=== PATIENT | female | born 1960 | race Caucasian/White ===

== ENCOUNTER → 2016-04-23 | Outpatient (CLI) | payer BC ==
[~2016-04-23] MED LIST: METROGEL TOP; PREMARIN CREAM; VGFVS/24
== END | disposition home or self-care (01) ==
LOC: C.PAPS 16:14
PROVIDERS: ATTEND Obstetrics & Gynecology
DX: Z01.419 Encounter for gynecological examination (general) (routine) without abnormal findings (principal)

== ENCOUNTER 2023-10-22 18:59 | Observation (INO) ==
[2023-10-22 19:37] LABS: Appearance Urine Clear (Clear); Bilirubin Urine Negative (Negative); Blood Urine Negative (Negative); Color Urine Yellow; Glucose Urine UA Negative (Negative); Ketones Urine 1+ (Negative); Leukocyte Esterase Urine Negative (Negative); Nitrite Urine Negative (Negative); Protein Urine Negative (Negative); Specific Gravity Urine 1.016 (1.000-1.030); Urobilinogen Urine Negative (Negative)
[2023-10-22 19:48] LABS: Basophils # (auto) 0.03 K/uL (0.00-0.20); Basophils % (auto) 0.3 %; Eosinophils # (auto) 0.04 K/uL (0.00-0.50); Eosinophils % (auto) 0.3 %; Hematocrit (blood only) 37.3 % (37.0-47.0); Hemoglobin 12.9 g/dl (12.0-16.0); Immature Granulocytes # (auto) 0.03 K/uL (0.01-0.20); Immature Granulocytes % (auto) 0.3 %; Lymphocytes # (auto) 1.82 K/uL (1.20-3.40); Lymphocytes % (auto) 15.9 %; Mean Corpuscular Hemoglobin 31.1 pg (25.0-34.0); Mean Corpuscular Hgb Conc 34.6 g/dL (32.0-36.0); Mean Corpuscular Volume 89.9 fL (80.0-100.0); Mean Platelet Volume 10.2 fL (9.4-12.4); Monocytes # (auto) 0.67 K/uL (0.11-0.59); Monocytes % (auto) 5.8 %; Neutrophils # (auto) 8.88 K/uL (1.40-6.50); Neutrophils % (auto) 77.4 %; Platelet Count 237 K/uL (130-400); RDW Coefficient of Variation 11.8 % (11.5-14.5); RDW Standard Deviation 38.4 fL (36.4-46.3); Red Blood Count 4.15 M/uL (4.20-5.40); White Blood Count 11.47 K/ul (4.8-10.8)
[2023-10-22 20:01] LABS: Albumin Globulin Ratio 1.5 (0.9-2); Albumin Level 4.8 gm/dl (3.4-5.0); BUN Creatinine Ratio 14.9 (10-20); Bilirubin,Total 1.2 mg/dl (0.2-1.0); Calcium 9.7 mg/dl (8.6-10.3); Creatinine Clr Calc Pharmacy 77.1 ml/min; Est GFR (African American) 99.2 ml/min; Est GFR (Non-African American) 85.6 ml/min; Globulin 3.1 gm/dl (2.5-4.0); Potassium 3.8 mmol/L (3.5-5.1); Total Protein 7.9 gm/dl (6.0-8.3)
[2023-10-22] MEDS: OPTIRAY 320 100ml IV ONE (20:10)
--- NOTE | 2023-10-22 20:36 | Emergency Department Note ---
History of Present Illness General Chief complaint: Abdominal Pain Stated complaint: ABD PAIN, BLOATING Time Seen by Provider: 10/22/23 19:47 History of Present Illness Maximum Pain Intensity: 4 Patient is a 63-year-old female with past medical history significant for osteoporosis who presents to the emergency department for evaluation of abdominal pain. Patient reports that her symptoms started on Thursday evening, 2 days ago. She reports that her symptoms were vague at onset, she just describes it as having an upset stomach or feeling like she had indigestion. She thought that she may have eaten something that did not agree with her. She was restless overnight, but was feeling well enough to go to work yesterday. She got through the day but when she got home last night, she did not have an appetite, and went to bed. At that point she noticed the pain was primarily in right lower quadrant. It hurt her to move in certain directions and to roll in the bed. She tried Pepto-Bismol chewables and ibuprofen. She thought her symptoms could be related to gas. Today, symptoms escalated. She had a light lunch of soup and grapes, and afterwards felt very bloated. She did try some MiraLAX, and had a bowel movement today, but still feels constipated. Patient currently rates her pain a 4/10. She also notes increased urination, but no dysuria or hematuria. She called her doctor's office this evening, they directed her to urgent care who sent her to the ED for evaluation. No fever or chills. No nausea, vomiting or diarrhea. No history of abdominal surgeries. Colonoscopy current, 4 years ago, has been clean in the past. Home Medications Medication Instructions Recorded Confirmed Type cholecalciferol (vitamin D3) 25 25 mcg PO DAILY 10/22/23 10/22/23 History mcg (1,000 unit) capsule (Vitamin D3) metronidazole 0.75 % topical cream 1 applic topical DAILY 10/22/23 10/22/23 History multivitamin 1 tab PO DAILY 10/22/23 10/22/23 History polyethylene glycol 3350 17 17 g PO DAILY PRN Constipation 10/22/23 10/22/23 History gram/dose oral powder (Miralax) terbinafine HCl 250 mg tablet 250 mg PO DAILY 10/22/23 10/22/23 History teriparatide 20 mcg/dose (600 0 mcg subcut DAILY 10/22/23 10/22/23 History mcg/2.4 mL) subcutaneous pen injector (Forteo) Allergies Allergy/AdvReac Type Severity Reaction Status Date / Time scallops AdvReac Intermediate Gastrointestinal Verified 10/22/23 22:37 Upset Past Med/Surg History Problem List Acute appendicitis (Acute) Encounter for cosmetic procedure Medical History Osteoporosis Tinnitus, bilateral Sensorineural hearing loss of both ears Atypical lobular hyperplasia of breast (~11/2008) Surgical History History of (~1995) H/O breast biopsy (~2007) History of (~1991) H/O wisdom tooth extraction (~1981) Hx of tonsillectomy (~1964) Family History Mother Breast cancer Father Breast cancer Lung cancer Grandmother (Maternal) Colorectal cancer Denies family history of Ovarian cancer Social History Smoking Status: Never smoker Tobacco Type: Cigarettes Hx Alcohol Use: Yes Hx Substance Use: No Preferred Language: Latvian Communication Ability: Effective Feels Safe at Home: Yes Sunscreen Use: Yes Review of Systems A total of 10 systems reviewed and were otherwise negative Physical Exam Vital Signs Vital Signs - 24 hr 10/22/23 19:11 10/22/23 19:15 10/22/23 19:18 Temperature 36.6 C Temperature Source Temporal Artery Scan Pulse Rate 70 Pulse Rhythm Regular Respiratory Rate 16 Respiratory Effort / Characteristics Non-Labored Non-Labored Respiratory Depth Normal Normal Blood Pressure 150/90 H Blood Pressure Mean 110 Pulse Oximetry 99 Oxygen Delivery Method Room Air Room Air Sepsis Recent Fever Within 48 Hours No Sepsis New/Unexplained Change in Mental Status No Sepsis Action Taken by Nursing No Action Required CONSTITUTIONAL: Patient is an ill albeit nontoxic-appearing 63-year-old female who is laying on the gurney in no acute distress. Temperature rechecked at time of exam was 37.4 C orally. EYES: Pupils equal, round, reactive to light and accommodation. EOMs intact without nystagmus. Sclera are anicteric. CARDIOVASCULAR: Regular rate and rhythm. Peripheral pulses easy to palpable. RESPIRATORY: Breath sounds equal and clear to auscultation. GI: Bowel sounds are diminished. Abdomen is soft, tender to percussion over the right lower quadrant, and tenderness to palpation on the right lower quadrant with guarding. MUSCULOSKELETAL: Full range of motion of extremities x 4 with good strength. No cyanosis, edema, joint tenderness or swelling. No deformity. Course Course Patient was seen and assessed as above. External medical records were reviewed. Laboratory studies implemented from triage per critical pathways. CT scan of the abdomen and pelvis with IV contrast was ordered. CBC with differential, CMP, lipase and urinalysis were ordered. I was able to fully assess the patient when she was placed in room C9. After my assessment of the patient, she was ordered IV fluids, IV fentanyl and Zofran. Diagnostics, as interpreted by me: Laboratory studies: White count 11,400 with left shift. No anemia. Electrolytes, renal functions are normal. Total bilirubin 1.2, remainder the transaminases are not elevated. Lipase mildly elevated at 142. Urine microscopy notes ketones only, no other indicators for infection. Imaging studies: CT scan of the abdomen and pelvis with IV contrast notes retroperitoneal appendicitis, without perforation or abscess. Stat Rad radiologist, Dr. Sullivan, called directly with the CT report. Patient was reassessed. She reported some mild improvement in her pain with the fentanyl. CT scan results were discussed with her. Consultation was placed with general surgery, patient reviewed with Jourdan Head PA-C with general surgery. Patient will be admitted to the surgical service with plan for surgical intervention tomorrow. Please refer to admission H&P and orders for further information. Differential diagnosis: UTI, pyelonephritis, kidney stone, appendicitis, diverticulitis, bowel obstruction, perforation, abscess, mass or malignancy, among others. Administered Medications Sodium Chloride (Nss) 1,000 mls @ 125 mls/hr IV .Q8H [place] Stop: 11/21/23 22:14 Last Admin: 10/22/23 22:50 Dose: 125 mls/hr Documented By: SDK Discontinued Medications Fentanyl Citrate (Fentanyl Citrate Pf 100 Mcg/2 Ml Vial) 50 mcg IV NOW STA Stop: 10/22/23 20:37 Last Admin: 10/22/23 20:59 Dose: 50 mcg Documented By: GAGAN Sodium Chloride (Nss) 1,000 mls @ 999 mls/hr IV .Q1H1M [place] Stop: 10/22/23 21:36 Last Infusion: 10/22/23 22:44 Dose: Infused Documented By: Admin: 10/22/23 21:00 Dose: 999 mls/hr Documented By: GAGAN Piperacillin Sod/Tazobactam Sod (Zosyn) 4.5 gm in 100 mls @ 200 mls/hr IV NOW STA Stop: 10/22/23 22:48 Last Infusion: 10/22/23 23:40 Dose: Infused Documented By: Admin: 10/22/23 22:48 Dose: 200 mls/hr Documented By: GAGAN Ioversol (Optiray 320 100ml) 91 ml IV ONCE ONE Stop: 10/22/23 20:11 Last Admin: 10/22/23 20:10 Dose: 91 ml Documented By: PIEDAD Ondansetron HCl (Ondansetron Inj 2 Mg/Ml 2 Ml Vial) 4 mg IV NOW STA Stop: 10/22/23 20:37 Last Admin: 10/22/23 20:59 Dose: 4 mg Documented By: GAGAN Medical Decision Making Differential Diagnosis See ED Course. Medical Records Attestation: I reviewed the patient's medical records. Home Medications Current Medication List: was personally reviewed by me Laboratory Data Attestation: I reviewed the patient's lab results. 10/22/23 19:29 10/22/23 19:29 Lab Results 10/22/23 10/22/23 Range/Units 19:20 19:29 WBC 11.47 H (4.8-10.8) K/ul RBC 4.15 L (4.20-5.40) M/uL Hgb 12.9 (12.0-16.0) g/dl Hct 37.3 (37.0-47.0) % MCV 89.9 (80.0-100.0) fL MCH 31.1 (25.0-34.0) pg MCHC 34.6 (32.0-36.0) g/dL RDW Std Deviation 38.4 (36.4-46.3) fL RDW Coeff of Elaine 11.8 (11.5-14.5) % Plt Count 237 (130-400) K/uL MPV 10.2 (9.4-12.4) fL Immature Gran % (Auto) 0.3 % Neut % (Auto) 77.4 % Lymph % (Auto) 15.9 % [place] % (Auto) 5.8 % Eos % (Auto) 0.3 % Baso % (Auto) 0.3 % Neut # (Auto) 8.88 H (1.40-6.50) K/uL Lymph # (Auto) 1.82 (1.20-3.40) K/uL [place] # (Auto) 0.67 H (0.11-0.59) K/uL Eos # (Auto) 0.04 (0.00-0.50) K/uL Baso # (Auto) 0.03 (0.00-0.20) K/uL Immature Gran # (Auto) 0.03 (0.01-0.20) K/uL Sodium 137 (136-145) mmol/L Potassium 3.8 (3.5-5.1) mmol/L Chloride 100 (98-107) mmol/L Carbon Dioxide 29 (21-32) mmol/L Anion Gap 8 (3-11) BUN 11 (6-23) mg/dl Creatinine 0.74 (0.6-1.2) mg/dl Est Cr Clr Drug Dosing 77.1 ml/min Est GFR ( Amer) 99.2 ml/min Est GFR (Non-Af Amer) 85.6 ml/min BUN/Creatinine Ratio 14.9 (10-20) Glucose 96 (70-99(Fasting)) mg/dl Calcium 9.7 (8.6-10.3) mg/dl Total Bilirubin 1.2 H (0.2-1.0) mg/dl AST 18 (13-39) U/L ALT 16 (7-52) U/L Alkaline Phosphatase 63 (34-104) U/L Total Protein 7.9 (6.0-8.3) gm/dl Albumin 4.8 (3.4-5.0) gm/dl Globulin 3.1 (2.5-4.0) gm/dl Albumin/Globulin Ratio 1.5 (0.9-2) Lipase 142 H (11-82) U/L Urine Color Yellow Urine Appearance Clear (Clear) Urine pH 6.0 (4.5-7.5) Ur Specific [place] 1.016 (1.000-1.030) Urine Protein Negative (Negative) Urine Glucose (UA) Negative (Negative) Urine Ketones 1+ H (Negative) Urine Blood Negative (Negative) Urine Nitrite Negative (Negative) Urine Bilirubin Negative (Negative) Urine Urobilinogen Negative (Negative) Ur Leukocyte Esterase Negative (Negative) Imaging Data Attestation: I personally reviewed and interpreted this imaging study as follows: Radiologist's Impression: Abdomen/Pelvis CT 10/22/23 19:27 CR Exam(s): CT ABDOMEN + PELVIS With Contrast IV Amt: 91 ml optiray 320 EXAM: CT Abdomen and Pelvis With Intravenous Contrast CLINICAL HISTORY: rlq pain. TECHNIQUE: Axial computed tomography images of the abdomen and pelvis with intravenous contrast. CTDI is 19.27 mGy and DLP is 841.99 mGy-cm. Automated exposure control was utilized for the study. A dose lowering technique was utilized adhering to the principles of ALARA. CONTRAST: Patient received 91 ml optiray 320 of IV contrast COMPARISON: No relevant prior studies available. FINDINGS: Limitations: There is respiratory artifact, which degrades image quality on multiple image slices. Lung bases: Unremarkable. No mass. No consolidation. ABDOMEN: Liver: Unremarkable. No mass. Gallbladder and bile ducts: Unremarkable. No calcified stones. No ductal dilation. Pancreas: Unremarkable. No mass. No ductal dilation. Spleen: Unremarkable. No splenomegaly. Adrenals: Unremarkable. No mass. Kidneys and ureters: Kidneys demonstrate normal enhancement. No hydronephrosis or obstructive nephrolithiasis. A 17 mm cortical cyst is noted involving the inferomedial right kidney. No follow-up required. Stomach and bowel: There is mild mucosal prominence of the inferior cecum. No other significant bowel mucosal abnormality noted. No bowel obstruction. PELVIS: Appendix: The retrocecal appendix is abnormally dilated, measuring up to 11 mm in diameter with hyperenhancement and periappendiceal fat stranding. Bladder: Unremarkable. No mass. Reproductive: Presumed incidental left adnexal/ovarian cyst measuring 6.1 x 4.7 x 5.6 cm. ABDOMEN and PELVIS: Intraperitoneal space: Unremarkable. No free air. No significant fluid collection. Bones/joints: No acute fracture. No dislocation. Soft tissues: Unremarkable. Vasculature: Atherosclerotic calcification of the aorta which is mildly tortuous. No dissection or aneurysm. Lymph nodes: Unremarkable. No enlarged lymph nodes. IMPRESSION: The retrocecal appendix is abnormally dilated, measuring up to 11 mm in diameter with hyperenhancement and periappendiceal fat stranding. Findings are consistent with acute appendicitis. No abscess or perforation. Communications: Call Doctor Appendicitis Electronically signed by: Samir Kline MD 10/22/23 21:54 PM MDM Narrative See ED Course. Impression & Plan Acute appendicitis Discharge Plan Visit Data Chief Complaint: Abdominal Pain Stated Complaint: ABD PAIN, BLOATING ED Provider: Jan Woods ED Midlevel Provider: Chay Cherry Discharge Problem: Acute appendicitis Patient Disposition: Admitted As Inpatient Discharge Instructions Interventions: ED Discharge Assessment Last Done: 10/23/23 00:00 Discharge Problem: Acute appendicitis Qualifiers: Acute appendicitis type: with localized peritonitis Appendicitis gangrene presence: without gangrene Appendicitis perforation presence: without perforation Appendicitis abscess presence: without abscess Qualified Code(s): K 35.30 - Acute appendicitis with localized peritonitis, without perforation or gangrene
[2023-10-22] MEDS: ONDANSETRON INJ 2 MG/ML 2 ML VIAL IV STA (20:59)
[2023-10-22] MEDS: fentaNYL citrate PF 100 MCG/2 ML VIAL IV STA (20:59)
[2023-10-22] MEDS: SODIUM CHLORIDE 0.9% 1,000 ML IV SCH ×2 (21:00→22:50)
--- NOTE | 2023-10-22 21:55 | CT Scan Report ---
Exam(s): CT ABDOMEN + PELVIS With Contrast IV Amt: 91 ml optiray 320 EXAM: CT Abdomen and Pelvis With Intravenous Contrast CLINICAL HISTORY: rlq pain. TECHNIQUE: Axial computed tomography images of the abdomen and pelvis with intravenous contrast. CTDI is 19.27 mGy and DLP is 841.99 mGy-cm. Automated exposure control was utilized for the study. A dose lowering technique was utilized adhering to the principles of ALARA. CONTRAST: Patient received 91 ml optiray 320 of IV contrast COMPARISON: No relevant prior studies available. FINDINGS: Limitations: There is respiratory artifact, which degrades image quality on multiple image slices. Lung bases: Unremarkable. No mass. No consolidation. ABDOMEN: Liver: Unremarkable. No mass. Gallbladder and bile ducts: Unremarkable. No calcified stones. No ductal dilation. Pancreas: Unremarkable. No mass. No ductal dilation. Spleen: Unremarkable. No splenomegaly. Adrenals: Unremarkable. No mass. Kidneys and ureters: Kidneys demonstrate normal enhancement. No hydronephrosis or obstructive nephrolithiasis. A 17 mm cortical cyst is noted involving the inferomedial right kidney. No follow-up required. Stomach and bowel: There is mild mucosal prominence of the inferior cecum. No other significant bowel mucosal abnormality noted. No bowel obstruction. PELVIS: Appendix: The retrocecal appendix is abnormally dilated, measuring up to 11 mm in diameter with hyperenhancement and periappendiceal fat stranding. Bladder: Unremarkable. No mass. Reproductive: Presumed incidental left adnexal/ovarian cyst measuring 6.1 x 4.7 x 5.6 cm. ABDOMEN and PELVIS: Intraperitoneal space: Unremarkable. No free air. No significant fluid collection. Bones/joints: No acute fracture. No dislocation. Soft tissues: Unremarkable. Vasculature: Atherosclerotic calcification of the aorta which is mildly tortuous. No dissection or aneurysm. Lymph nodes: Unremarkable. No enlarged lymph nodes. IMPRESSION: The retrocecal appendix is abnormally dilated, measuring up to 11 mm in diameter with hyperenhancement and periappendiceal fat stranding. Findings are consistent with acute appendicitis. No abscess or perforation. Communications: Call Doctor Appendicitis Electronically signed by: Samir Kline MD 10/22/23 21:54 PM
[2023-10-22] MEDS ORDERED: ONDANSETRON INJ 2 MG/ML 2 ML VIAL IV PRN (22:12)
[2023-10-22] MEDS ORDERED: MoRPHine SULFATE 4 MG/ML 1 ML CARP\\VIAL IV PRN (22:12)
--- NOTE | 2023-10-22 22:18 | History & Physical Report ---
Date of Service October 22, 2023 Assessment & Plan (1) Acute appendicitis: Plan: Due to the patient's clinical presentation, labs, and findings on imaging she will be admitted to the surgical service proceeding as follows: Analgesics to be provided antiemetics to be provided We will initiate antibiotics in the form of Zosyn Will hydrate her with IV fluids Serial labs will be followed Will implement n.p.o. status Will tenably plan on having the patient undergo an appendectomy with Dr. Busby of [facility] physician and general surgery on 10/23/2023 We will check a preoperative chest x-ray Will check a preoperative EKG At the present time the patient is nontoxic-appearing. She is normotensive without tachycardia or fever. Additional recommendations will be forthcoming based on her clinical course as unfolds and her postop recovery thereafter SCDs will be used for DVT prevention, no chemical means due to planned surgery She will be a level 1 full code Addendum: Chest x-ray did not show any evidence of pneumonia. History of Present Illness Chief Complaint: Abdominal pain Primary Care Provider: Keisha Padilla MD This is a 63-year-old female who presented to the emergency department secondary to abdominal pain that began 2 days ago. Patient notes that the pain was in her upper abdomen but has since largely shifted to the right lower quadrant. She notes that the pain is otherwise nonradiating. She notes that the pain is better when she flexes her knees and is worse with certain movements. She denies any fevers, shakes, or chills. She denies any nausea or vomiting. Patient reports that she has had 2 C-sections but has had no additional abdominal surgeries. Her last oral intake of solid food was at approximately 12:00 PM on 10/22/2023 but she mitts that she has been sipping some tea but has not had any since 5:00 PM on 10/22/2023. In the emergency department she had labs and imaging which I independent reviewed. A CT scan of the abdomen pelvis showed the patient had a retrocecal appendix which was dilated up to 11 mm with some periappendiceal fat stranding. There is no abscess or perforation of the appendix. These findings were felt to be consistent with acute appendicitis. She did have a urinalysis that was not indicative of infection. CBC revealed white blood cell count was 11.4. Her hemoglobin and hematocrit as well as the platelet count were within the normal range. Chemistry profile showed sodium and potassium as well as the BUN and cre atinine were normal. She did have a slight elevation of her lipase at 142. At the time of my interview she was resting comfortably bed and she was in no distress Allergies Allergy/AdvReac Type Severity Reaction Status Date / Time scallops AdvReac Intermediate Gastrointestinal Verified 10/22/23 22:37 Upset Home Medications Medication Instructions Recorded Confirmed Type cholecalciferol (vitamin D3) 25 25 mcg PO DAILY 10/22/23 10/22/23 History mcg (1,000 unit) capsule (Vitamin D3) metronidazole 0.75 % topical cream 1 applic topical DAILY 10/22/23 10/22/23 History multivitamin 1 tab PO DAILY 10/22/23 10/22/23 History polyethylene glycol 3350 17 17 g PO DAILY PRN Constipation 10/22/23 10/22/23 History gram/dose oral powder (Miralax) terbinafine HCl 250 mg tablet 250 mg PO DAILY 10/22/23 10/22/23 History teriparatide 20 mcg/dose (600 0 mcg subcut DAILY 10/22/23 10/22/23 History mcg/2.4 mL) subcutaneous pen injector (Forteo) Past Med/Surg History Problem List Acute appendicitis (Acute) Encounter for cosmetic procedure Medical History Osteoporosis Tinnitus, bilateral Sensorineural hearing loss of both ears Atypical lobular hyperplasia of breast (~11/2008) Surgical History History of (~1995) H/O breast biopsy (~2007) History of (~1991) H/O wisdom tooth extraction (~1981) Hx of tonsillectomy (~1964) Family History Mother Breast cancer Father Breast cancer Lung cancer Grandmother (Maternal) Colorectal cancer Denies family history of Ovarian cancer Social History Smoking Status: Never smoker Tobacco Type: Cigarettes Hx Alcohol Use: Yes Hx Substance Use: No Preferred Language: Swazi Communication Ability: Effective Feels Safe at Home: Yes Sunscreen Use: Yes Review of Systems Review of Systems: All systems reviewed & are unremarkable except as noted in HPI & below Physical Exam Constitutional: WD/WN, vitals as above Eyes: no conjunctival abnormality ENMT: Ears: no hearing impairment and no external ear abnormality Mouth: no oropharynx abnormality Neck: trachea midline Respiratory: normal respiratory effort; no respiratory distress and no labored breathing Cardiovascular: Rate/Rhythm: regular rate and regular rhythm Vessels: dorsalis pedis pulses present Gastrointestinal (Abdomen): Abdomen is soft, nondistended, nonrigid. Patient did have some voluntary guarding significant tenderness in the right lower quadrant or McBurney's point. Musculoskeletal: No calf tenderness Skin: no rashes Neurologic: moves all extremities Psychiatric: A+Ox3, euthymic affect Results & Data Results & Data Vital Signs (Past 12 Hours) Vital Signs Temp Pulse Resp BP Pulse Ox O2 Del Method 10/22/23 19:15 Room Air 10/22/23 19:11 36.6 C 70 16 150/90 H 99 Room Air Supervising Physician Co-Signing Physician Notes pnt d/w MARCO A Iyer, labs and imaging reviewed, agree with above. abd pain, Ct personally reviewed, and interpreted, shows appy. Admit, plan for appendectomy in am PG Care Time/CCT Total # of Minutes Spent Total Time Spent with Patient: Total time spent is greater than 50% in coordination of care (as documented) at patient's floor/unit and/or counseling patient: Coding Level of Care Code 16343 INT INP/OBS CARE 3/75MIN Diagnoses Acute appendicitis K35.30 Acute appendicitis type: with localized peritonitis Appendicitis abscess presence: without abscess Appendicitis gangrene presence: without gangrene Appendicitis perforation presence: without perforation (1) Acute appendicitis Acute appendicitis type: with localized peritonitis Appendicitis abscess presence: without abscess Appendicitis gangrene presence: without gangrene Appendicitis perforation presence: without perforation Qualified Code(s): K35.30 - Acute appendicitis with localized peritonitis, without perforation or gangrene
[2023-10-22] MEDS: PIPERACILLIN/TAZOBACTAM 4.5 GM/100 ML BAG IV STA (22:48)
--- NOTE | 2023-10-23 03:36 | Communication Note ---
Date of Service: October 23, 2023 Patient revisited at bedside at approximately 3:20 AM. She is normotensive without tachycardia or fever. She does not report any worsening pain. There is no change in her clinical status. Will continue with plan as previously outlined.
[2023-10-23] MEDS: PIPERACILLIN/TAZOBACTAM 4.5 GM/100 ML BAG IV SCH (04:49)
[2023-10-23] MEDS: ACETAMINOPHEN 1,000 MG/100 ML VIAL IV PRN (05:03)
--- NOTE | 2023-10-23 07:23 | XRay Report ---
XR chest 1V portable HISTORY: pre-op COMPARISON: Chest 01/05/2011. FINDINGS: The lungs are clear. Cardiac silhouette is normal in size. No pleural effusions. No pneumot horax. IMPRESSION: No acute process. ACT 112: Negative or not required by law. Electronically signed by: Eduardo Patterson M.D. 10/23/2023 7:21 AM
[2023-10-23 08:10] LABS: Basophils # (auto) 0.04 K/uL (0.00-0.20); Basophils % (auto) 0.6 %; Eosinophils # (auto) 0.06 K/uL (0.00-0.50); Eosinophils % (auto) 0.9 %; Hematocrit (blood only) 33.5 % (37.0-47.0); Hemoglobin 11.6 g/dl (12.0-16.0); Immature Granulocytes # (auto) 0.02 K/uL (0.01-0.20); Immature Granulocytes % (auto) 0.3 %; Lymphocytes # (auto) 1.34 K/uL (1.20-3.40); Mean Corpuscular Hemoglobin 30.9 pg (25.0-34.0); Mean Corpuscular Hgb Conc 34.6 g/dL (32.0-36.0); Mean Corpuscular Volume 89.3 fL (80.0-100.0); Mean Platelet Volume 10.3 fL (9.4-12.4); Monocytes # (auto) 0.51 K/uL (0.11-0.59); Monocytes % (auto) 7.2 %; Neutrophils # (auto) 5.08 K/uL (1.40-6.50); Platelet Count 207 K/uL (130-400); RDW Coefficient of Variation 11.6 % (11.5-14.5); RDW Standard Deviation 37.1 fL (36.4-46.3); Red Blood Count 3.75 M/uL (4.20-5.40); White Blood Count 7.05 K/ul (4.8-10.8)
[2023-10-23 08:38] LABS: Partial Thromboplastin Time 28 Seconds (21-31); Prothrombin Time 10.9 Seconds (9.0-12.0)
[2023-10-23] MEDS: LACTATED RINGER'S 1,000 ML IV SCH (08:49)
[2023-10-23 09:10] LABS: BUN Creatinine Ratio 11.8 (10-20); Calcium 8.6 mg/dl (8.6-10.3); Creatinine Clr Calc Pharmacy 83.9 ml/min; Est GFR (African American) 107.1 ml/min; Est GFR (Non-African American) 92.4 ml/min; Potassium 3.9 mmol/L (3.5-5.1)
--- NOTE | 2023-10-23 09:19 | Anesthesiology Consultation ---
Date of Service October 23, 2023 Assessment & Plan Chart Review Chart Review: Acceptable Risk for Surgery and Patient NOT seen in Pre Admission Testing Consults Requested none History Surgery Operation Date: 10/23/23 07:00 Proposed Procedures p Laparoscopic Appendectomy - Serjio Busby DO, FACS Height/Weight Height: 5 ft 5 in Weight: 73.5 kg Allergies Allergy/AdvReac Type Severity Reaction Status Date / Time scallops AdvReac Intermediate Gastrointestinal Verified 10/22/23 22:37 Upset Medications Home Medications Medication Instructions Recorded Confirmed Last Taken cholecalciferol (vitamin D3) 25 25 mcg PO DAILY 10/22/23 10/22/23 10/22/23 mcg (1,000 unit) capsule (Vitamin D3) metronidazole 0.75 % topical cream 1 applic topical DAILY 10/22/23 10/22/23 10/22/23 multivitamin 1 tab PO DAILY 10/22/23 10/22/23 10/22/23 polyethylene glycol 3350 17 17 g PO DAILY PRN Constipation 10/22/23 10/22/23 10/22/23 gram/dose oral powder (Miralax) terbinafine HCl 250 mg tablet 250 mg PO DAILY 10/22/23 10/22/23 10/22/23 teriparatide 20 mcg/dose (600 0 mcg subcut DAILY 10/22/23 10/22/23 10/22/23 mcg/2.4 mL) subcutaneous pen injector (Forteo) Active Medications Generic Name Dose Route Start Last Admin Trade Name Freq PRN Reason Stop Dose Admin Sodium Chloride 1,000 mls @ 125 mls/hr 10/22/23 22:15 10/23/23 08:02 Nss IV 11/21/23 22:14 125 mls/hr .Q8H [place] Administration Acetaminophen 1,000 mg in 100 mls @ 400 mls/hr 10/22/23 22:12 10/23/23 05:19 Ofirmev IV 10/25/23 22:11 Infused Q8H PRN Infusion Moderate Pain (Scale 4, 5, 6) Piperacillin Sod/Tazobactam Sod 4.5 gm in 100 mls @ 25 mls/hr 10/23/23 04:00 10/23/23 08:55 Zosyn IV 11/02/23 03:59 Infused Q8H [place] Infusion Lactated Ringer's 1,000 mls @ 15 mls/hr 10/23/23 09:00 10/23/23 08:49 Lr IV 11/22/23 08:59 15 mls/hr .Q24H [place] Administration NPO Date Last Intake of Fluids: 10/22/23 Time Last Intake of Fluids: 17:00 Date Last Intake of Solids: 10/22/23 Time Last Intake of Solids: 12:00 Past Medical History Medical History Osteoporosis Tinnitus, bilateral Sensorineural hearing loss of both ears Atypical lobular hyperplasia of breast (~11/2008) Past Family History Family History Mother Breast cancer Father Breast cancer Lung cancer Grandmother (Maternal) Colorectal cancer Denies family history of Ovarian cancer Past Surgical History Surgical History History of (~1995) H/O breast biopsy (~2007) History of (~1991) H/O wisdom tooth extraction (~1981) Hx of tonsillectomy (~1964) Social History Smoking Status: Former smoker Do You Dip or Chew Tobacco: No Hx Alcohol Use: Yes alcohol intake frequency: 0-2 drinks per day Alcohol Intake Frequency Comment: One drink daily Hx Substance Use: No Physical Exam Vital Signs Last Vital Signs Temp 36.8 C 10/23/23 08:41 Pulse 49 L 10/23/23 08:41 Resp 16 10/23/23 08:41 BP 133/88 10/23/23 08:41 Pulse Ox 98 10/23/23 08:41 O2 Del Method Room Air 10/23/23 08:41 Testing Laboratory Results 10/23/23 07:35 10/23/23 07:35 PT 10.9 Seconds (9.0-12.0) 10/23/23 07:35 INR 1.0 (0.9-1.1) 10/23/23 07:35 APTT 28 Seconds (21-31) 10/23/23 07:35 Urine Color Yellow 10/22/23 19:20 Urine Appearance Clear (Clear) 10/22/23 19:20 Urine pH 6.0 (4.5-7.5) 10/22/23 19:20 Ur Specific Biv[place] 1.016 (1.000-1.030) 10/22/23 19:20 Urine Protein Negative (Negative) 10/22/23 19:20 Urine Glucose (UA) Negative (Negative) 10/22/23 19:20 Urine Ketones 1+ (Negative) H 10/22/23 19:20 Urine Nitrite Negative (Negative) 10/22/23 19:20 Ur Leukocyte Esterase Negative (Negative) 10/22/23 19:20 Electrocardiogram Date: 10/22/23 Findings: + NSR @ (65)
--- NOTE | 2023-10-23 09:57 | Surgery Progress Note ---
Date of Service October 23, 2023 Assessment & Plan (1) Acute appendicitis with localized peritonitis: Plan: Acute appendicitis with localized peritonitis Plan for laparoscopic appendectomy Risk the procedure were discussed to include but not limited bleeding, in fection, leak, abscess, damage surrounding structures, conversion open, normal appendix, need for future more extensive surgeries, abscess, and the risk of anesthesia Likely discharge this afternoon Activity restrictions, wound care instructions, and return precautions given Follow-up in general surgery clinic in 2-week Admission and Anticipated Discharge Date Admission Date: October 22, 2023 Subjective Admitted with appendicitis, no issues overnight Physical Exam Constitutional: WD/WN, vitals as above Respiratory: normal respiratory effort, lungs clear to auscultation Cardiovascular: RRR, no murmur, no edema Gastrointestinal (Abdomen): Percussion/Palpation: + abdomen tender (Tender to palpation in right lower quadrant with localized guarding), + guarding (Localized guarding right lower quad) and abdomen soft; abdomen not rigid Results & Data Vital Signs (Past 12 Hours) Vital Signs Temp Pulse Pulse Pulse Resp BP Pulse Ox 10/23/23 08:41 36.8 C 49 L 16 133/88 98 10/23/23 08:13 36.9 C 51 L 16 122/73 96 10/22/23 23:45 36.9 C 64 16 123/74 96 10/22/23 22:58 68 18 142/87 H 95 10/22/23 22:48 65 O2 Del Method 10/23/23 08:41 Room Air 10/23/23 08:13 Room Air 10/22/23 23:45 Room Air 10/22/23 22:58 10/22/23 22:48 Laboratory Results Laboratory Results - last 24 hr 10/22/23 10/22/23 10/23/23 19:20 19:29 07:35 WBC 11.47 H 7.05 RBC 4.15 L 3.75 L Hgb 12.9 11.6 L Hct 37.3 33.5 L MCV 89.9 89.3 MCH 31.1 30.9 MCHC 34.6 34.6 RDW Std Deviation 38.4 37.1 RDW Coeff of Elaine 11.8 11.6 Plt Count 237 207 MPV 10.2 10.3 Immature Gran % (Auto) 0.3 0.3 Neut % (Auto) 77.4 72.0 Lymph % (Auto) 15.9 19.0 [place] % (Auto) 5.8 7.2 Eos % (Auto) 0.3 0.9 Baso % (Auto) 0.3 0.6 Neut # (Auto) 8.88 H 5.08 Lymph # (Auto) 1.82 1.34 [place] # (Auto) 0.67 H 0.51 Eos # (Auto) 0.04 0.06 Baso # (Auto) 0.03 0.04 Immature Gran # (Auto) 0.03 0.02 PT 10.9 INR 1.0 APTT 28 PTT Ratio 1.0 Sodium 137 138 Potassium 3.8 3.9 Chloride 100 105 Carbon Dioxide 29 28 Anion Gap 8 5 BUN 11 8 Creatinine 0.74 0.68 Est Cr Clr Drug Dosing 77.1 83.9 Est GFR ( Amer) 99.2 107.1 Est GFR (Non-Af Amer) 85.6 92.4 BUN/Creatinine Ratio 14.9 11.8 Glucose 96 95 Calcium 9.7 8.6 Total Bilirubin 1.2 H AST 18 ALT 16 Alkaline Phosphatase 63 Total Protein 7.9 Albumin 4.8 Globulin 3.1 Albumin/Globulin Ratio 1.5 Lipase 142 H Urine Color Yellow Urine Appearance Clear Urine pH 6.0 Ur Specific [place] 1.016 Urine Protein Negative Urine Glucose (UA) Negative Urine Ketones 1+ H Urine Blood Negative Urine Nitrite Negative Urine Bilirubin Negative Urine Urobilinogen Negative Ur Leukocyte Esterase Negative Diagnostic Findings CT personally reviewed and interpreted by myself and agree with the assessment of acute appendicitis without evidence of perforation Abdomen/Pelvis CT 10/22/23 19:27 CR Exam(s): CT ABDOMEN + PELVIS With Contrast IV Amt: 91 ml optiray 320 EXAM: CT Abdomen and Pelvis With Intravenous Contrast CLINICAL HISTORY: rlq pain. TECHNIQUE: Axial computed tomography images of the abdomen and pelvis with intravenous contrast. CTDI is 19.27 mGy and DLP is 841.99 mGy-cm. Automated exposure control was utilized for the study. A dose lowering technique was utilized adhering to the principles of ALARA. CONTRAST: Patient received 91 ml optiray 320 of IV contrast COMPARISON: No relevant prior studies available. FINDINGS: Limitations: There is respiratory artifact, which degrades image quality on multiple image slices. Lung bases: Unremarkable. No mass. No consolidation. ABDOMEN: Liver: Unremarkable. No mass. Gallbladder and bile ducts: Unremarkable. No calcified stones. No ductal dilation. Pancreas: Unremarkable. No mass. No ductal dilation. Spleen: Unremarkable. No splenomegaly. Adrenals: Unremarkable. No mass. Kidneys and ureters: Kidneys demonstrate normal enhancement. No hydronephrosis or obstructive nephrolithiasis. A 17 mm cortical cyst is noted involving the inferomedial right kidney. No follow-up required. Stomach and bowel: There is mild mucosal prominence of the inferior cecum. No other significant bowel mucosal abnormality noted. No bowel obstruction. PELVIS: Appendix: The retrocecal appendix is abnormally dilated, measuring up to 11 mm in diameter with hyperenhancement and periappendiceal fat stranding. Bladder: Unremarkable. No mass. Reproductive: Presumed incidental left adnexal/ovarian cyst measuring 6.1 x 4.7 x 5.6 cm. ABDOMEN and PELVIS: Intraperitoneal space: Unremarkable. No free air. No significant fluid collection. Bones/joints: No acute fracture. No dislocation. Soft tissues: Unremarkable. Vasculature: Atherosclerotic calcification of the aorta which is mildly tortuous. No dissection or aneurysm. Lymph nodes: Unremarkable. No enlarged lymph nodes. IMPRESSION: The retrocecal appendix is abnormally dilated, measuring up to 11 mm in diameter with hyperenhancement and periappendiceal fat stranding. Findings are consistent with acute appendicitis. No abscess or perforation. Communications: Call Doctor Appendicitis Electronically signed by: Samir Kline MD 10/22/23 21:54 PM Chest X-Ray 10/22/23 22:11 XR chest 1V portable HISTORY: pre-op COMPARISON: Chest 01/05/2011. FINDINGS: The lungs are clear. Cardiac silhouette is normal in size. No pleural effusions. No pneumothorax. IMPRESSION: No acute process. ACT 112: Negative or not required by law. Electronically signed by: Eduardo Patterson M.D. 10/23/2023 7:21 AM PG Care Time/CCT Total # of Minutes Spent Total Time Spent with Patient: Total time spent is greater than 50% in coordination of care (as documented) at patient's floor/unit and/or counseling patient: Coding Level of Care Code 98693 SUB INP/OBS CARE 2/35MIN Diagnoses Acute appendicitis with localized peritonitis K35.30
[2023-10-23] MEDS ORDERED: PROPOFOL IV EMULSION 10 MG/ML 20 ML VIAL IV ONE (10:00)
[2023-10-23] MEDS ORDERED: ONDANSETRON INJ 2 MG/ML 2 ML VIAL ONE (10:00)
[2023-10-23] MEDS ORDERED: ROCURONIUM BROMIDE 10 MG/ML 5 ML VIAL IV ONE (10:00)
[2023-10-23] MEDS ORDERED: fentaNYL citrate PF 100 MCG/2 ML VIAL ONE (10:00)
[2023-10-23] MEDS ORDERED: LIDOCAINE 2% 2 ML VIAL/AMP(20MG/ML) INFIL ONE (10:00)
[2023-10-23] MEDS ORDERED: DEXAMETHASONE SOD INJ 4 MG/ML VIAL ONE (10:00)
[2023-10-23] MEDS ORDERED: MIDAZOLAM HCL 1 MG/ML 2ML VIAL ONE (10:00)
[2023-10-23] MEDS ORDERED: ATROPINE SULFATE 0.1 MG/ML 10ML SYR IV PRN (10:10)
[2023-10-23] MEDS ORDERED: ePHEDrine sulfate 50 MG/ML AMP IV PRN (10:10)
[2023-10-23] MEDS ORDERED: ONDANSETRON INJ 2 MG/ML 2 ML VIAL IV PRN (10:10)
[2023-10-23] MEDS ORDERED: PHENYLEPHRINE HCL 10 MG/ML VIAL ONE (10:48)
[2023-10-23] MEDS ORDERED: KETOROLAC 30 MG/ML VIAL ONE (10:48)
[2023-10-23] MEDS ORDERED: SUGAMMADEX SODIUM 200 MG/2 ML VIAL IV ONE (10:48)
[2023-10-23] MEDS: BUPIVACAINE 0.5 % 5 MG/1 ML MPF 30ML VIAL ONE (11:15)
--- NOTE | 2023-10-23 11:29 | Operative Report ---
PG Post Operative Report Pre & Post Diagnosis Operation Date: 10/23/23 07:00 Pre-Op Diagnosis: Acute appendicitis with localized peritonitis Post-Op Diagnosis: Acute appendicitis with localized peritonitis I identified the patient and participated in the time-out.: Yes Procedure Operation Date: 10/23/23 07:00 Actual Procedures p Laparoscopic Appendectomy(Not Applicable) - Serjio Busby DO, FACS Surgeon Serjio Busby DO, FACS Optical Laboratory Technician None Estimated Blood Loss 5 Findings Consistent with Post-Op Diagnosis Partially retrocecal appendix. Friable but nonperforated. Specimens Appendix Anesthesia Type General Complications none Disposition Accompanied Patient To Recovery: No Disposition: Recovery Room Indications 63-year-old female presented with signs symptoms of acute appendicitis confirmed by CT scan, plan for laparoscopic appendectomy. The risks of the procedure were discussed, all questions were answered, and the patient agreed to proceed with surgery as planned. Description of Procedure The patient was properly identified, consented, and taken to the operating room where she was placed in the supine position. General endotracheal anesthesia was induced. SCDs and a safety belt were placed. Preoperative antibiotics were administered. A Davis catheter was not placed. The patient's abdomen was prepped and draped in the standard sterile fashion. Surgical timeout was performed and all parties were in agreement that this was the correct patient and procedure to be performed and we continued as planned. A curvilinear infraumbilical incision was made with electrocautery and deepened down to the fascia with blunt dissection. The base of the umbilicus was grasped with a Johnnie and elevated towards the ceiling. An incision was made in the midline fascia with a knife and entry into the peritoneum was confirmed. Stay suture of 0 Vicryl was placed and a Riggs trocar was inserted. The abdomen was insufflated with carbon dioxide which the patient tolerated without incident. The laparoscope was inserted and no damage from initial trocar placement was noted, no gross abnormalities were noted within the 4 quadrants the abdomen. 5 mm ports were then placed in the left lower quadrant with care not to damage the epigastric vessels, and in the suprapubic midline with care not to damage the bladder. The patient was placed in Trendelenburg position and rotated towards the left. The small bowel was swept away from the right lower quadrant. The cecum was grasped withan atraumatic grasper exposing the appendix. The appendix was retrocecal and moderate inflamed and there was no evidence of perforation. There was minimal reactive fluid in the pelvis. He the right colon is mobilized by taking down the white line of Toldt. The appendix was coursing along and somewhat adherent to the colon towards the liver. This was gently dissected away. The appendix was not perforated or necrotic, but was quite friable. The mesoappendix was divided using Sonicision device. A purple loaded endoscopic stapler was then used to divide the appendix at its base. Hemostasis was good. The appendix was placed in an Endo Catch bag and removed through the umbilical port site. The right lower quadrant and pelvis was irrigated and hemostasis was found to be good. 5 mm trochars were removed under direct visualization and the abdomen was allowed to collapse. The umbilical port site fascia was closed with 0 Vicryl suture. The wound was irrigated, and the skin of all ports was closed with 4-0 Monocryl subcuticular sutures. Dermabond was placed over the wounds. The patient was extubated in the operating room and taken to the PACU where she recovered without apparent incident. All sponge, instrument and needle counts were correct at the conclusion of the procedure. The patient tolerated the procedure well. I attest to the content of the Intraoperative Record and any orders documented therein. Any exceptions are noted below.
[2023-10-23] MEDS: fentaNYL citrate PF 100 MCG/2 ML VIAL IV PRN (11:35)
[2023-10-23] MEDS ORDERED: diphenhydrAMINE 50 MG/ML VIAL IV PRN (12:30)
[2023-10-23] MEDS ORDERED: MoRPHine SULFATE 2 MG/ML CARP IV PRN (12:30)
[2023-10-23] MEDS ORDERED: oxyCODONE HCL IR 5 MG TAB (IMMEDIATE RELEASE) PO PRN ×2 (12:30)
[2023-10-23] MEDS ORDERED: MoRPHine SULFATE 4 MG/ML 1 ML CARP\\VIAL IV PRN (12:30)
[2023-10-23 12:33] VITALS: RESP 18
[2023-10-23] MEDS: KETOROLAC TROMETHAMINE 15 MG/ML VIAL IV PRN (12:42)
--- NOTE | 2023-10-23 12:56 | Anesthesiology Progress Note ---
Date of Service October 23, 2023 Anesthesia Post Procedure Vital Signs Vital Signs: Temp Pulse Pulse Pulse Resp BP BP 10/23/23 12:25 36.4 C L 59 L 18 132/72 10/23/23 12:13 59 L 13 135/78 10/23/23 12:00 36.4 C L 64 15 132/82 10/23/23 11:50 57 L 21 103/86 10/23/23 11:40 56 L 15 130/71 10/23/23 11:31 36.3 C L 61 14 124/82 10/23/23 08:41 36.8 C 49 L 16 133/88 10/23/23 08:13 36.9 C 51 L 16 122/73 10/22/23 23:45 36.9 C 64 16 123/74 10/22/23 22:58 68 18 142/87 H 10/22/23 22:48 65 10/22/23 19:15 10/22/23 19:11 36.6 C 70 16 150/90 H Pulse Ox O2 Del Method O2 Flow Rate 10/23/23 12:25 95 Room Air 10/23/23 12:13 100 Room Air 10/23/23 12:00 98 Room Air 10/23/23 11:50 99 Room Air 10/23/23 11:40 97 Room Air 10/23/23 11:31 100 Oxymask 5 10/23/23 08:41 98 Room Air 10/23/23 08:13 96 Room Air 10/22/23 23:45 96 Room Air 10/22/23 22:58 95 10/22/23 22:48 10/22/23 19:15 Room Air 10/22/23 19:11 99 Room Air Pain Intensity Lower Abdomen: Pain Intensity: 4 Abdomen: Pain Intensity: 5 Transfer of Care Handoff Completed per policy Notes Mental Status: alert / awake / arousable Patient Amnestic to Procedure: Yes Nausea / Vomiting: adequately controlled Pain: adequately controlled Airway Patency, RR, SpO2: stable & adequate BP & HR: stable & adequate Hydration State: stable & adequate Anesthetic Complications: no major complications apparent and Pt Satisfied with anesthetic care
[2023-10-23] MEDS: ACETAMINOPHEN 500 MG TAB PO SCH (14:34)
[2023-10-23 15:23] VITALS: BP 122/75; PULSE 59; TEMP 98.2; O2SAT 95
--- NOTE | 2023-10-23 17:57 | Discharge Summary ---
Date of Service October 23, 2023 Admission HPI Per Admitting Provider This is a 63-year-old female who presented to the emergency department secondary to abdominal pain that began 2 days ago. Patient notes that the pain was in her upper abdomen but has since largely shifted to the right lower quadrant. She notes that the pain is otherwise nonradiating. She notes that the pain is better when she flexes her knees and is worse with certain movements. She denies any fevers, shakes, or chills. She denies any nausea or vomiting. Patient reports that she has had 2 C-sections but has had no additional abdominal surgeries. Her last oral intake of solid food was at approximately 12:00 PM on 10/22/2023 but she mitts that she has been sipping some tea but has not had any since 5:00 PM on 10/22/2023. In the emergency department she had labs and imaging which I independent reviewed. A CT scan of the abdomen pelvis showed the patient had a retrocecal appendix which was dilated up to 11 mm with some periappendiceal fat stranding. There is no abscess or perforation of the appendix. These findings were felt to be consistent with acute appendicitis. She did have a urinalysis that was not indicative of infection. CBC revealed white blood cell count was 11.4. Her hemoglobin and hematocrit as well as the platelet count were within the normal range. Chemistry profile showed sodium and potassium as well as the BUN and creatinine were normal. She did have a slight elevation of her lipase at 142. At the time of my interview she was resting comfortably bed and she was in no distress Principal Diagnosis acute appendicitis Discharge Exam Constitutional WD/WN, vitals as above Neck trachea midline Respiratory normal respiratory effort, lungs clear to auscultation normal respiratory effort; no respiratory distress and no labored breathing Cardiovascular Rate/Rhythm: regular rate and regular rhythm Vessels: dorsalis pedis pulses present Gastrointestinal (Abdomen) Percussion/Palpation: + abdomen tender (Tender to palpation in right lower quadrant with localized guarding), + guarding (Localized guarding right lower quad) and abdomen soft; abdomen not rigid Skin no rashes Neurologic moves all extremities Psychiatric A+Ox3, euthymic affect Discharge Data Allergies Allergy/AdvReac Type Severity Reaction Status Date / Time scallops AdvReac Intermediate Gastrointestinal Verified 10/22/23 22:37 Upset Procedures Performed Operation Date: 10/23/23 07:00 Actual Procedures p Laparoscopic Appendectomy(Not Applicable) - Serjio Busby DO, FACS Ordered Studies 10/22/23 19:27 CT Abd and Pelvis [CT abd pelvis IV con only] Stat Hospital Course (1) Acute appendicitis: This is a 63 yo female who presented to the [facility] ED on 10/22/23 with abdominal pain. Workup in the ED showed a WBC of [address] a/p concerning for acute ap pendicitis. The patient was tender to palpation in the RLQ. Patient made NPO with IVF and booked for the OR. On 10/23/23 the patient went to the OR with Dr. Busby for a laparoscopic appendectomy. The patient tolerated the procedure well, see operative report for full details. Post operatively the patient's diet was advanced, pain managed on prn meds, and incisions clean/dry/intact. After the procedure the patient was deemed stable for discharge to home 10/23/23.SHe was given a prescription for narcotics and antiemetics. Was given discharge instructions, follow recommendations and return precautions. Total Time Total Time Spent Total Time Spent (In Minutes): 10 Discharge Plan Discharge Items Patient Disposition: Home - Self-Care Reason For Visit: APPY Discharge Diagnosis: laparoscopic appendectomy Activity: Per Instructions section Activity Comment: No heavy lifting or strenuous activity for 2 weeks Lifting Comment: No lifting greater than 20 pounds for 2 weeks Bathing Comment: you can shower tomorrow . no soaking in pools or bath for 2 weeks Exercise/Sports: Gradually increase as tolerated Exercise Comment: No strenuous activity for 2 weeks Driving/Machine Use: no driving if taking narcotic pain medication Non-emergency contact: Surgeon Call non-emergency contact if: you have any medication questions, your temperature is above 101.5, your wound has increased redness, your wound has increased drainage and your wound pain has increased Follow-up/Referrals: Serjio Busby DO, FACS [Physician] - (call office for follow up in 2 weeks ) Keisha Padilla MD [Primary Care Provider] - Diet: Regular Addtl Attending Provider Instructions: You have surgical glue called dermabond on your surgical site incisions. You may shower with this on. This will tend to come off within a couple of weeks. Do not pick at it. You may take acetaminophen/Tylenol and an NSAID such as ibuprofen as needed for pain. Please follow manufactures instructions. You have been prescribed oxycodone for breakthrough pain. Please take as directed. Pending Studies at Discharge: Yes Studies:: surgical pathology Stand-Alone Forms: My [facility], Smoking Cessation Medications and DC Order Prescriptions: New oxycodone 5 mg tablet 5 - 10 mg PO .[id number] MDD no more than 6 tabs in 24hours PRN (Reason: pain) Qty: 15 0RF ondansetron 4 mg tablet,disintegrating 4 mg PO Q8H PRN (Reason: nausea and vomiting) 5 Days Qty: 10 0RF Continued multivitamin Tablet 1 tab PO DAILY terbinafine HCl 250 mg tablet 250 mg PO DAILY metronidazole 0.75 % cream 1 applic TOPICAL DAILY Rx Instructions: FOR ROSACEA polyethylene glycol 3350 [Miralax] 17 gram/dose Powder 17 g PO DAILY PRN (Reason: Constipation) cholecalciferol (vitamin D3) [Vitamin D3] 25 mcg (1,000 unit) Capsule 25 mcg PO DAILY teriparatide [Forteo] 20 mcg/dose (600mcg/2.4mL) pen injector 0 mcg SUBCUT DAILY Rx Instructions: PT UNSURE OF DOSE, PRELOADED SYRINGE Discharge Orders: Discharge Order (Routine); Ordered 10/23/23 Ordered By: Danny Sheldon/Other Patient Handouts: Surgery for Appendicitis Admission Data Admit Date/Time: 10/22/23 22:20 Attending Provider: Serjio Busby Admit Provider: Serjio Busby Primary Care Provider: Keisha Padilla Other Interventions: Discharge Summary Assessment (RN) Last Done: 10/23/23 15:17 Coding Level of Care Code 60538 IN/OBS DISCH 30 MIN/LESS Diagnoses Acute appendicitis K35.30 Acute appendicitis type: with localized peritonitis Appendicitis abscess presence: without abscess Appendicitis gangrene presence: without gangrene Appendicitis perforation presence: without perforation
--- NOTE | 2023-10-23 22:23 | Electrocardiogram Report ---
Test Reason : Blood Pressure : */* mmHG Vent. Rate : 65 BPM Atrial Rate : 65 BPM P-R Int : 158 ms QRS Dur : 82 ms QT Int : 402 ms P-R-T Axes : 41 1 18 degrees QTcB Int : 418 ms Normal sinus rhythm Normal ECG When compared with ECG of 05-Jan-2011 06:48, No significant change Confirmed by Oscar Maldonado ([id number]) on 10/23/2023 10:23:16 PM Referred By: REFERRED SELF Confirmed By: Oscar Maldonado
== END 2023-10-23 16:24 | disposition home or self-care (01) ==
LOC: ED 18:59 → 3N 22:20 → INTOOBSV 22:20 → 3N 10-23